=== PATIENT | female | born 2000 | race African-American/Black ===

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

== ENCOUNTER 2020-11-28 01:41 | Emergency (ER) | payer MEDICAID ==
[~2020-11-28] VITALS: Ht 160 cm; Wt 115.0 kg
[2020-11-28 01:56] VITALS: BP 143/82; Ht 160 cm; Wt 115.0 kg
[2020-11-28] MEDS ORDERED: ZOLOFT50 MG PO (01:58)
[2020-11-28 04:01] LABS: BILIRUBIN NEGATIVE (NEGATIVE); HCG URINE NEGATIVE (NEGATIVE); KETONE NEGATIVE (NEGATIVE); NITRITE NEGATIVE (NEGATIVE); UROBILINOGEN NORMAL mg/dL (< 2)
== END 2020-11-28 04:33 | disposition home or self-care (01) ==
LOC: D.ER 01:41
PROVIDERS: Family Medicine
DX: F31.9 Bipolar disorder, unspecified (principal); R44.0 Auditory hallucinations; G47.00 Insomnia, unspecified